=== PATIENT | female | born 1995 | race African-American/Black ===

== ENCOUNTER 2017-10-06 19:43 | Emergency (ER) | payer OTHER ==
[~2017-10-06] VITALS: Ht 154.9 cm; Wt 52.2 kg
[~2017-10-06 19:43] MED LIST: AUGMENTIN 875-1 EACH PO; CIPROFLOXACIN500 M1 PO; FLONASE 0.05%50 MCG NASAL; IBUPROFEN 600600 M1 PO; NORCO 5-325 TA1 EACH PO; PYRIDIUM200 MG PO; ZOFRAN ODT4 MG PO
[2017-10-06] MEDS ORDERED: NOHOMEMEDICATIONS (19:56)
[2017-10-06] MEDS ORDERED: TRIAMCINOLONE A80 G2 TOP (20:55)
== END 2017-10-06 21:35 | disposition home or self-care (01) ==
LOC: ER 19:43
DX: L30.9 Dermatitis, unspecified (principal); Z87.891 Personal history of nicotine dependence; W57.XXXA Bitten or stung by nonvenomous insect and other nonvenomous arthropods, initial encounter; Y93.89 Activity, other specified; Y92.89 Other specified places as the place of occurrence of the external cause; Y99.8 Other external cause status

== ENCOUNTER 2019-10-29 17:17 | Emergency (ER) | payer OTHER ==
[~2019-10-29] VITALS: Ht 154.9 cm; Wt 54.4 kg
[~2019-10-29 17:17] MED LIST changes: +NOHOMEMEDICATIONS; +TRIAMCINOLONE A80 G2 TOP
[2019-10-29 19:03] LABS: URINE BLOOD NEGATIVE (Negative); URINE CLARITY CLEAR; URINE COLOR YELLOW; URINE GLUCOSE-RANDOM* NEGATIVE (Negative); URINE KETONES 1+ (Negative); URINE NITRITE-REFLEX NEGATIVE (Negative); URINE PROTEIN (DIPSTICK) 1+ (Negative); URINE SPECIFIC GRAVITY 1.025 (1.005-1.035); URINE UROBILINOGEN 0.2 E.U./dl (0.2-1.0)
[2019-10-29 19:06] LABS: ICTOTEST (BILI CONFIRMATORY) Negative (Negative); URINE BILIRUBIN NEGATIVE (Negative); URINE LEUKOCYTES-REFLEX 1+ (Negative)
[2019-10-29 19:16] LABS: SQUAMOUS >10 Many /LPF (0-3)
[2019-10-29 19:17] LABS: CASTS None Seen /LPF (None Seen); MUCUS >6 Heavy strn/LPF (None Seen)
[2019-10-29 19:18] LABS: CRYSTALS None Seen /LPF (None Seen); URINE RBC 0-2 Rare /HPF (0-2); URINE WBC-REFLEX >25 Many /HPF (0-5)
[2019-10-29 19:19] LABS: WBC CLUMPS Few (None Seen)
[2019-10-29] MEDS ORDERED: FLAGYL500 M1 PO (19:30)
[2019-10-29] MEDS ORDERED: KEFLEX500 M1 PO (19:30)
[2019-10-29] MEDS ORDERED: ZOFRAN ODT4 MG PO (19:37)
[2019-10-29 19:45] VITALS: BP 124/78
== END 2019-10-29 19:47 | disposition home or self-care (01) ==
LOC: ER 17:17
PROVIDERS: Nurse Practitioner Family
DX: A59.9 Trichomoniasis, unspecified (principal); N39.0 Urinary tract infection, site not specified; R11.2 Nausea with vomiting, unspecified; Z87.891 Personal history of nicotine dependence